=== PATIENT | male | born 1940 | race Two or more races ===

== ENCOUNTER 2019-10-12 14:06 | Inpatient (IN) | payer MEDICARE, MEDICAID ==
[~2019-10-12] VITALS: Ht 175.3 cm; Wt 86.2 kg
--- NOTE | 2019-10-12 14:20 | NUR ---
BIB [facility] C/O LETHARG[facility] THIS MORNING. PATIENT A/OX3, BREATHING EVEN AND UNLABORED, NO SOB NOTED, VERBALLY RESPONSIVE. NO DISTRESS NOTED.
[2019-10-12 14:37] LABS: BASOPHILS # (AUTO) 0.1 /CMM (0.0-0.2); BASOPHILS % (AUTO) 0.7 % (0.0-2.0); EOSINOPHILS % (AUTO) 1.3 % (0.0-6.0); HEMATOCRIT 40 % (39-51); HEMOGLOBIN 13.7 g/dL (13.5-17.5); LYMPHOCYTES % (AUTO) 34.6 % (20.0-44.0); MEAN CORPUSCULAR HGB CONC 34 g/dl (31.0-36.0); MEAN CORPUSCULAR VOLUME 82 fL (80-96); MONOCYTES # (AUTO) 1.4 /CMM (0.1-1.30); MONOCYTES % (AUTO) 16.2 % (2.0-12.0); NEUTROPHILS # (AUTO) 4.1 /CMM (1.8-8.9); NEUTROPHILS % (AUTO) 47.2 % (43.0-81.0); PLATELET COUNT (AUTO) 110 /CMM (150-450); RED BLOOD CELL COUNT(AUTO) 4.94 MIL/uL (4.5-6.0); WHITE BLOOD COUNT (AUTO) 8.6 K/uL (4.3-11.0)
[2019-10-12 14:49] LABS: CALCIUM, SERUM 8.8 mg/dL (8.5-10.1); CARBON DIOXIDE 31 mmol/L (21-32); CHLORIDE 104 mmol/L (98-107); GLUCOSE 137 mg/dL (74-106); SODIUM SERUM 140 mmol/L (136-145); UREA NITROGEN, BLOOD 17 mg/dL (7-18)
[2019-10-12 14:55] LABS: ALANINE AMINOTRANSFERASE 8 U/L (12-78); ALBUMIN 2.8 g/dL (3.4-5.0); ALKALINE PHOSPHATASE 75 U/L (46-116); ASPARTATE AMINOTRANSFERASE 12 U/L (15-37); BILIRUBIN,DIRECT 0.2 mg/dL (0.0-0.2); BILIRUBIN,TOTAL 0.6 mg/dL (0.2-1.0); LIPASE 378 U/L (73-393); TOTAL PROTEIN, SERUM 6.9 g/dL (6.4-8.2)
--- NOTE | 2019-10-12 15:26 | NUR ---
CALLED [facility]. HANDWRITING EXPERT WAS PAGED
[2019-10-12 15:46] LABS: APPEARANCE,URINE Clear (CLEAR); BILIRUBIN,URINE Negative (NEGATIVE); BLOOD, URINE Negative Ery/uL (NEGATIVE); KETONES,URINE Trace (NEGATIVE); LEUKOCYTE ESTERASE ,URINE Negative (NEGATIVE); NITRITE, URINE Negative (NEGATIVE); PROTEIN,URINE Negative (NEGATIVE); UGLUCOSE Negative (NEGATIVE)
[2019-10-12] MEDS ORDERED: FURO20TA4 PO (15:50)
[2019-10-12] MEDS ORDERED: IPRA12.9 INH (15:50)
[2019-10-12] MEDS ORDERED: ALBU8.5H8 IH (15:50)
[2019-10-12] MEDS ORDERED: DIVA-78 PO (15:50)
[2019-10-12] MEDS ORDERED: BUSP5TAB3 PO (15:50)
[2019-10-12] MEDS ORDERED: METF-440 PO (15:50)
[2019-10-12] MEDS ORDERED: RISP0.2515 PO (15:50)
[2019-10-12] MEDS ORDERED: ATOR40TA PO (15:50)
[2019-10-12] MEDS ORDERED: ASPI-1152 PO (15:50)
--- NOTE | 2019-10-12 15:52 | NUR ---
CALLED [facility] FOR [facility] BED
[2019-10-12 15:54] LABS: BAND % (MANUAL) 4 % (0.0-5.0); LYMPHOCYTES % (MANUAL) 33 % (16-48); MONOCYTES % (MANUAL) 15 % (0-11.0); NEUTROPHILS % (MANUAL) 48 (42-76)
[2019-10-12 16:04] LABS: BACTERIA,URINE None seen /HPF (None Seen); COLOR,URINE Light yellow (YELLOW); RBC,URINE 0-2 /HPF (0-2); SQUAMOUS EPITHELIAL CELL,UR None Seen /HPF (None Seen); WBC,URINE 0-2 /HPF (0-3)
--- NOTE | 2019-10-12 16:27 | NUR ---
308-1 [facility] BED
--- NOTE | 2019-10-12 16:37 | NUR ---
REPORT GIVEN TO NHUNG ALEGRIA FOR [facility].
--- NOTE | 2019-10-12 17:27 | NUR ---
PATIENT TRANSFERRED TO ROOM 308 IN STABLE CONDITION. NO DISTRESS NOTED. NEEDS ATTENDED.
--- NOTE | 2019-10-12 17:45 | NUR ---
M/S RN NOTES PATIENT RECEIVED ALERT AND ORIENTED X3, NO RESPIRATORY DISTRESS, NO C/O PAIN AT THIS TIME. PATIENT'S SKIN WARM TO TOUCH. IV ACCESS SITE INTACT AND PATENT ON THE RT HAND #22G. PATIENT'S BELONGINGS ACCOUNTED FOR AND BELONGINGS LIST SIGNED. PATIENT'S NEEDS ATTENDED. NOTIFIED MD FOR ADMISSION ORDERS. BED ON LOWEST LOCKED POSITION, CALL LIGHT WITHIN REACH. WILL CONTINUE TO MONITOR.
[2019-10-12] MEDS ORDERED: ACETAMINOPHEN 325 MG TABLET PO PRN (18:30)
[2019-10-12] MEDS ORDERED: ALBUTEROL SULFATE INH 18 GM HFA.AER.AD IH PRN (18:30)
[2019-10-12] MEDS ORDERED: MAGNESIUM HYDROXIDE 30 ML UDC PO PRN (18:30)
[2019-10-12] MEDS ORDERED: Z GUARD REMEDY 2 OZ OINT TP PRN (18:30)
[2019-10-12] MEDS ORDERED: MAG HYDROX/AL HYDROX/SIMETH 30 ML UDC PO PRN (18:30)
[2019-10-12] MEDS ORDERED: ONDANSETRON HCL/PF 4 MG/2 ML VIAL IVP PRN (18:30)
[2019-10-12] MEDS ORDERED: ZOLPIDEM TARTRATE 5 MG TABLET PO PRN (18:30)
[2019-10-12] MEDS ORDERED: IPRATROPIUM NEB FS 0.5 MG/2.5 ML AMPUL.NEB NEB PRN (18:30)
[2019-10-12] MEDS: METFORMIN 500 MG TABLET PO SCH (18:55)
[2019-10-12] MEDS: DIVALPROEX SODIUM 500 MG TABLET.DR PO SCH (19:30)
[2019-10-12] MEDS ORDERED: ALBUTEROL FS 2.5 MG/3 ML VIAL.NEB NEB PRN (19:30)
--- NOTE | 2019-10-12 19:30 | NUR ---
MS/RN OPENING NOTES: RECEIVED PATIENT ALERT AND ORIENTED X3, WITH EPISODES OF CONFUSION. VERBALLY RESPONSIVE AND ABLE TO MAKE NEEDS KNOWN. NO RESPIRATORY DISTRESS, NO C/O PAIN AT THIS TIME. PATIENT'S SKIN WARM TO TOUCH. NO OPEN WOUNDS. IV ACCESS SITE INTACT AND PATENT ON THE RT HAND #22G SL. SAFETY MEASURES IN PLACE. BED ON LOWEST LOCKED POSITION, CALL LIGHT WITHIN REACH. WILL CONTINUE TO MONITOR PT ACCORDINGLY.
[2019-10-12 20:00] VITALS: BP 134/76
[2019-10-12] MEDS: ATORVASTATIN 40 MG TABLET PO SCH (21:14)
[2019-10-12] MEDS: busPIRone 5 MG TABLET PO SCH (21:14)
--- NOTE | 2019-10-13 06:28 | NUR ---
MS/RN CLOSING NOTES: PATIENT REMAINED ALERT AND ORIENTED X3, WITH EPISODES OF CONFUSION. VERBALLY RESPONSIVE AND ABLE TO MAKE NEEDS KNOWN. NO RESPIRATORY DISTRESS, NO C/O PAIN AT THIS TIME. PATIENT'S SKIN WARM TO TOUCH. NO OPEN WOUNDS. IV ACCESS SITE INTACT AND PATENT ON THE RT HAND #22G SL. ALL MEDS GIVEN ORDERED. ALL NEEDS MET AND RENDERED AT THIS TIME. SAFETY MEASURES IN PLACE. BED ON LOWEST LOCKED POSITION, CALL LIGHT WITHIN REACH. WILL ENDORSE TO DAY SHIFT NURSE FOR ENMAN[facility]EL.
[2019-10-13 06:53] LABS: BASOPHILS % (AUTO) 0.1 % (0.0-2.0); EOSINOPHILS % (AUTO) 1.6 % (0.0-6.0); HEMATOCRIT 39 % (39-51); LYMPHOCYTES # (AUTO) 2.9 /CMM (0.8-4.8); LYMPHOCYTES % (AUTO) 38.4 % (20.0-44.0); MEAN CORPUSCULAR HGB CONC 34 g/dl (31.0-36.0); MEAN CORPUSCULAR VOLUME 81 fL (80-96); MONOCYTES # (AUTO) 1.2 /CMM (0.1-1.30); MONOCYTES % (AUTO) 15.1 % (2.0-12.0); NEUTROPHILS # (AUTO) 3.4 /CMM (1.8-8.9); NEUTROPHILS % (AUTO) 44.8 % (43.0-81.0); PLATELET COUNT (AUTO) 104 /CMM (150-450); RED BLOOD CELL COUNT(AUTO) 4.82 MIL/uL (4.5-6.0); WHITE BLOOD COUNT (AUTO) 7.7 K/uL (4.3-11.0)
[2019-10-13 07:18] LABS: CALCIUM, SERUM 8.5 mg/dL (8.5-10.1); CREATININE 0.8 mg/dL (0.6-1.3); MAGNESIUM 1.7 mg/dL (1.8-2.4); PHOSPHORUS 3.3 mg/dL (2.5-4.9); POTASSIUM 3.9 mmol/L (3.5-5.1)
--- NOTE | 2019-10-13 07:51 | NUR ---
MS RN OPENING NOTES RECEIVED PATIENT ALERT AND ORIENTED 2-3, WITH EPISODES OF CONFUSION. VERBALLY RESPONSIVE AND ABLE TO MAKE NEEDS KNOWN. NO CARDIAC OR RESPIRATORY DISTRESS, NO C/O PAIN OR DISCOMFORT AT THIS TIME. PATIENT'S SKIN WARM TO TOUCH. SKIN INTACT. IV ACCESS SITE NOTED ON R HAND G22. IV SITE INTACT AND PATENT. SAFETY MEASURES IN PLACE. BED LOCKED AND IN LOWEST POSITION, CALL LIGHT WITHIN REACH. WILL CONTINUE TO MONITOR PT ACCORDINGLY.
[2019-10-13 08:00] VITALS: BP 118/64
[2019-10-13] MEDS: FUROSEMIDE 20 MG TABLET PO SCH (08:22)
[2019-10-13] MEDS: DIVALPROEX SODIUM 500 MG TABLET.DR PO SCH ×2 (08:22→16:28)
[2019-10-13] MEDS: ASPIRIN EC 81 MG TABLET.DR PO SCH (08:22)
[2019-10-13] MEDS: busPIRone 5 MG TABLET PO SCH ×2 (08:22→16:28)
[2019-10-13] MEDS: METFORMIN 500 MG TABLET PO SCH ×2 (08:22→16:29)
[2019-10-13] MEDS: Magnesium 1GM/D5W 100ML PREMIX 100 ML IV SCH ×2 (11:28→12:08)
[2019-10-13 12:32] LABS: THYROID STIMULATING HORMONE 0.846 uIU/mL (0.358-3.74)
--- NOTE | 2019-10-13 15:00 | NUR ---
CT OF HEAD W/O CONTRAST PT CAME BACK TO UNIT S/P CT OF HEAD WITHOUT CONTRAST
[2019-10-13 15:59] VITALS: BP 119/65
[2019-10-13] MEDS: risperiDONE 0.25 MG TABLET PO SCH (16:27)
--- NOTE | 2019-10-13 17:40 | NUR ---
MS RN CLOSING NOTES PATIENT AWAKE ALERT AND ORIENTED 2-3, WITH EPISODES OF CONFUSION. VERBALLY RESPONSIVE AND ABLE TO MAKE NEEDS KNOWN. NO CARDIAC OR RESPIRATORY DISTRESS, NO C/O PAIN OR DISCOMFORT AT THIS TIME. PATIENT'S SKIN WARM TO TOUCH. SKIN INTACT. IV ACCESS SITE NOTED ON R HAND G22. IV SITE INTACT AND PATENT. MAGNESIUM REPLACED TODAY, 2G GIVEN. TOLERATED WELL. PT ALSO WENT FOR CT OF HEAD WITHOUT CONTRAST. AWAITING FOR RESULTS. SAFETY MEASURES IN PLACE. BED LOCKED AND IN LOWEST POSITION, CALL LIGHT WITHIN REACH. WILL
--- NOTE | 2019-10-13 19:21 | NUR ---
MS RN OPENING NOTES PATIENT RECEIVED RESTING IN BED, A/O X3 ABLE TO FOLLOW COMMANDS. ON 2L OF O2 VIA NC WITH BREATHING EVEN AND UNLABORED, NO SOB NOTED. NO SIGNS OF ACUTE DISTRESS. NO COMPLAINTS OF PAIN OR DISCOMFORT. IV LOCATED ON R HAND #22. SAFETY PRECAUTIONS IN PLACE WITH BED IN LOWEST POSITION, CALL LIGHT WITHIN REACH, BREAKS ON, AND SIDE RAILS UP. WILL CONTINUE TO MONITOR THROUGHOUT THE NIGHT.
[2019-10-13 20:00] VITALS: BP 121/62
[2019-10-13] MEDS: ATORVASTATIN 40 MG TABLET PO SCH (21:01)
--- NOTE | 2019-10-14 06:37 | NUR ---
MS RN CLOSING NOTES PATIENT CURRENTLY RESTING IN BED A/O X 3, ABLE TO FOLLOW COMMANDS, SLIGHTLY CONFUSED AT TIMES. ON 2L OF O2 VIA NC WITH BREATHING EVEN AND UNLABORED, NO SOB NOTED. IV LOCATED ON R HAND #22 SL. NO SIGNS OF ACUTE DISTRESS. NO COMPLAINTS OF PAIN OR DISCOMFORT. PATIENT WAS KEPT CLEAN AND DRY THROUGHOUT THE NIGHT. ALL NEEDS ATTENDED TO. SAFETY PRECAUTIONS IN PLACE WITH BED IN LOWEST POSITION, CALL LIGHT WITHIN REACH, BREAKS ON, SIDE RAILS UP. WILL ENDORSE TO DAY SHIFT NURSE ABOUT ENMANUEL.
[2019-10-14 07:00] LABS: CALCIUM, SERUM 8.5 mg/dL (8.5-10.1); CREATININE 0.9 mg/dL (0.6-1.3); MAGNESIUM 1.8 mg/dL (1.8-2.4)
--- NOTE | 2019-10-14 07:58 | NUR ---
MS RN OPENING NOTES RECEIVED PATIENT RESTING IN BED, A/O X3 ABLE TO FOLLOW COMMANDS. ON 2L OF O2 VIA NC WITH BREATHING EVEN AND UNLABORED, NO SOB NOTED. NO SIGNS OF CARDIAC OR RESPIRATORY DISTRESS NOTED. NO COMPLAINTS OF PAIN OR DISCOMFORT. IV SITE NOTED ON R HAND #22. SAFETY PRECAUTIONS IN PLACE WITH BED LOCKED AND IN LOWEST POSITION, CALL LIGHT WITHIN REACH, AND SIDE RAILS UP.
[2019-10-14 08:00] VITALS: BP 113/70
[2019-10-14] MEDS: DIVALPROEX SODIUM 500 MG TABLET.DR PO SCH ×2 (08:13→16:50)
[2019-10-14] MEDS: busPIRone 5 MG TABLET PO SCH ×2 (08:14→16:50)
[2019-10-14] MEDS: FUROSEMIDE 20 MG TABLET PO SCH (08:14)
[2019-10-14] MEDS: METFORMIN 500 MG TABLET PO SCH ×2 (08:14→16:50)
[2019-10-14] MEDS: ASPIRIN EC 81 MG TABLET.DR PO SCH (08:14)
[2019-10-14] MEDS: HYDROCODONE/APAP 5/325MG 1 EACH TABLET PO PRN ×2 (11:15→16:51)
[2019-10-14] MEDS: risperiDONE 0.25 MG TABLET PO SCH (16:50)
--- NOTE | 2019-10-14 18:18 | NUR ---
MS RN CLOSING NOTE PATIENT AWAKE ALERT AND ORIENTED 2-3, PLEASANT AND VERBALLY RESPONSIVE AND ABLE TO MAKE NEEDS KNOWN. NO CARDIAC OR RESPIRATORY DISTRESS, NO C/O PAIN OR DISCOMFORT AT THIS TIME. IV ACCESS SITE NOTED ON R HAND G22. IV SITE INTACT AND PATENT. ALL DUE MEDS ADMINISTERED. SAFETY MEASURES IN PLACE. BED LOCKED AND IN LOWEST POSITION, CALL LIGHT WITHIN REACH. WILL
--- NOTE | 2019-10-14 19:24 | NUR ---
MS RN OPENING NOTES PATIENT RECEIVED RESTING IN BED, A/O X3 ABLE TO FOLLOW COMMANDS. ON 2L OF O2 VIA NC WITH BREATHING EVEN AND UNLABORED, NO SOB NOTED. NO SIGNS OF ACUTE DISTRESS. NO COMPLAINTS OF PAIN OR DISCOMFORT. IV LOCATED ON R HAND #22 TKO . SAFETY PRECAUTIONS IN PLACE WITH BED IN LOWEST POSITION, CALL LIGHT WITHIN REACH, BREAKS ON, AND SIDE RAILS UP. WILL CONTINUE TO MONITOR THROUGHOUT THE NIGHT.
[2019-10-14 20:00] VITALS: BP 125/63
[2019-10-14] MEDS: ATORVASTATIN 40 MG TABLET PO SCH (21:31)
--- NOTE | 2019-10-15 06:30 | NUR ---
MS RN CLOSING NOTES PATIENT CURRENTLY RESTING IN BED, A/O X3 ABLE TO FOLLOW COMMANDS. ON 2L OF O2 VIA NC WITH BREATHING EVEN AND UNLABORED, NO SOB NOTED. NO SIGNS OF ACUTE DISTRESS. NO COMPLAINTS OF PAIN OR DISCOMFORT. IV LOCATED ON R HAND #22 TKO . SAFETY PRECAUTIONS IN PLACE WITH BED IN LOWEST POSITION, CALL LIGHT WITHIN REACH, BREAKS ON, AND SIDE RAILS UP. PATIENT WAS KEPT CLEAN AND DRY THROUGHOUT THE NIGHT. ALL NEEDS ATTENDED TO. WILL ENDORSE TO ONCOMING SHIFT ABOUT ENMANUEL.
[2019-10-15 08:00] VITALS: BP 122/59
--- NOTE | 2019-10-15 08:00 | NUR ---
RN NOTES RECEIVED PATIENT IN THE BED A/O X3, NO ACUTE RESPIRATORY DISTRESS, PATIENT REFUSED PAIN, ADMINISTERED SCHEDULED MEDICATION, V/S STABLE. PATIENT INCONTINENT, USING DIAPER, ASSIST TURN AND REPOSTION Q 2 HR. CALL LIGHT WITHIN TO REACH.
[2019-10-15] MEDS: FUROSEMIDE 20 MG TABLET PO SCH (09:35)
[2019-10-15] MEDS: ASPIRIN EC 81 MG TABLET.DR PO SCH (09:35)
[2019-10-15] MEDS: DIVALPROEX SODIUM 500 MG TABLET.DR PO SCH (09:36)
[2019-10-15] MEDS: busPIRone 5 MG TABLET PO SCH (09:36)
[2019-10-15] MEDS: METFORMIN 500 MG TABLET PO SCH (09:36)
--- NOTE | 2019-10-15 10:00 | NUR ---
rn notes patient will discharge to the snf via hospitalist orders.
--- NOTE | 2019-10-15 15:20 | NUR ---
CANE BURNER NOTES PATIENT DISCHARGE AT THIS TIME GOING SNF. PATIENT A/O X3, STABLE ,V/S WNL, REFUSED PAIN. MED RECONCILIATION AND DISCHARGE ORDER REVIEWED AND EXPLAINED TO THE PATIENT. REPORT GIVEN SNF MANAGER GREEN CHARGE NURSE. MANAGER GREEN CHARGE NURSE VERBALIZED UNDERSTANDING. PATIENT HAS NO BELONGING. PATIENT WILL FOLLOW SNF REVENUE TAX SPECIALIST. PATIENT AUTOMOBILE REPAIR SERVICE ESTIMATOR BY AMBULANCE. FAMILY AWARE OF DISCHARGE PLANING.
== END 2019-10-15 15:30 | DRG 640 ==
LOC: ER 14:10 → MED 16:54
PROVIDERS: ADMIT Internal Medicine; ATTEND Internal Medicine
DX: E86.0 Dehydration (principal); G93.41 Metabolic encephalopathy; I50.32 Chronic diastolic (congestive) heart failure; R62.7 Adult failure to thrive; I11.0 Hypertensive heart disease with heart failure; E11.42 Type 2 diabetes mellitus with diabetic polyneuropathy; J44.9 Chronic obstructive pulmonary disease, unspecified; E78.5 Hyperlipidemia, unspecified; F03.90 Unspecified dementia, unspecified severity, without behavioral disturbance, psychotic disturbance, mood disturbance, and anxiety; Z79.84 Long term (current) use of oral hypoglycemic drugs; F32.9 Major depressive disorder, single episode, unspecified; R53.1 Weakness; R40.2413 Glasgow coma scale score 13-15, at hospital admission; G93.89 Other specified disorders of brain
CPT/HCPCS: 36415; 70450-TC; 71045-TC; 80048-TC; 80076-TC; 80164-TC; 81000-TC; 83690-TC; 83735-TC; 84100-TC; 84443-TC; 84484-TC; 85025-TC; 87081-TC; 97116-TC; 97530-TC; G0378; J3475; J7040

== ENCOUNTER 2020-05-23 17:50 | Emergency (ER) | payer MEDICAID, MEDICARE, OTHER ==
[~2020-05-23] VITALS: Ht 172.7 cm; Wt 104.3 kg
[~2020-05-23 17:50] MED LIST: ALBU8.5H8 IH; ASPI-1420 PO; ATOR40TA PO; BUSP5TAB3 PO; DIVA-78 PO; FURO20TA4 PO; IPRA12.9 INH; METF-440 PO; RISP0.2515 PO
[2020-05-23 18:26] VITALS: BP 115/71
--- NOTE | 2020-05-23 22:56 | NUR ---
CALLED [facility] FOR DISCHARGE TO SNF. NO ETA PROVIDED. RESERVATION NUMBER [id number].
--- NOTE | 2020-05-24 00:42 | NUR ---
[facility] ETA 1 HR
--- NOTE | 2020-05-24 01:40 | NUR ---
REPOT GIVEN TO RENNY ALEGRIA AT [facility] FOR [facility].
== END 2020-05-24 01:46 | disposition home or self-care (01) ==
LOC: ER 17:52
DX: S09.8XXA Other specified injuries of head, initial encounter (principal); R51.9 Headache, unspecified; J44.9 Chronic obstructive pulmonary disease, unspecified; I11.0 Hypertensive heart disease with heart failure; I50.9 Heart failure, unspecified; E11.9 Type 2 diabetes mellitus without complications; Z79.84 Long term (current) use of oral hypoglycemic drugs; Z79.82 Long term (current) use of aspirin; Z79.899 Other long term (current) drug therapy; W18.09XA Striking against other object with subsequent fall, initial encounter; Y93.89 Activity, other specified; Y92.89 Other specified places as the place of occurrence of the external cause; Y99.8 Other external cause status
CPT/HCPCS: 70450; 99284; A6403

== ENCOUNTER 2025-02-08 13:52 | Inpatient (IN) | payer MEDICARE, OTHER ==
[~2025-02-08] VITALS: Ht 172.7 cm; Wt 74.8 kg
[2025-02-08 15:34] LABS: APPEARANCE,URINE CLEAR (CLEAR); BLOOD, URINE Negative Ery/uL (NEGATIVE); LEUKOCYTE ESTERASE ,URINE Negative (NEGATIVE); UGLUCOSE Negative (NEGATIVE)
[2025-02-08 15:40] LABS: AMPHETAMINE, URINE NEGATIVE (NEGATIVE); BARBITURATE, URINE NEGATIVE (NEGATIVE); BENZODIAZEPINE, URINE NEGATIVE (NEGATIVE); CANNABINOID, URINE NEGATIVE (NEGATIVE); COCCAINE, URINE NEGATIVE (NEGATIVE); OPIATE, URINE NEGATIVE (NEGATIVE)
[2025-02-08 15:41] LABS: NITRITE, URINE NEGATIVE (NEGATIVE)
[2025-02-08 15:56] LABS: ADD URINE CULTURE NO; SQUAMOUS EPITHELIAL CELL,UR None Seen /HPF (None Seen)
[2025-02-08] MEDS ORDERED: OLANZAPINE 10 MG VIAL IM ONE (17:09)
[2025-02-08] MEDS: OLANZAPINE 10 MG VIAL IM ONE (17:19)
[2025-02-08] MEDS ORDERED: MELA5TAB PO (17:20)
[2025-02-08] MEDS ORDERED: DOCU-141 PO (17:20)
[2025-02-08] MEDS ORDERED: LORA-258 PO (17:20)
[2025-02-08] MEDS ORDERED: INSU100V39 SQ (17:20)
[2025-02-08] MEDS ORDERED: SENN8.6T19 PO (17:20)
[2025-02-08] MEDS ORDERED: METF-442 PO (17:20)
[2025-02-08] MEDS ORDERED: INSU100V7 SQ (17:20)
[2025-02-08] MEDS ORDERED: MIDO5TAB4 PO (17:20)
[2025-02-08] MEDS ORDERED: BISA10SU11 RC (17:20)
[2025-02-08 18:06] LABS: PLATELET COUNT (AUTO) 182 K/uL (150-450); RED BLOOD CELL COUNT(AUTO) 4.39 MIL/uL (4.5-6.0); RED CELL DISTRIBUTION WIDTH 17.5 % (11.5-15.0); WHITE BLOOD COUNT (AUTO) 8.3 K/uL (4.3-11.0)
[2025-02-08 18:21] LABS: CALCIUM, SERUM 8.7 mg/dL (8.5-10.1); CREATININE 1.0 mg/dL (0.6-1.3); SODIUM SERUM 138 mmol/L (136-145); UREA NITROGEN, BLOOD 16 mg/dL (7-18)
[2025-02-08 18:25] LABS: ALCOHOL, BLOOD < 3 mg/dL (0-10); ASPARTATE AMINOTRANSFERASE 14 U/L (15-37); TOTAL PROTEIN, SERUM 7.1 g/dL (6.4-8.2)
[2025-02-08 20:00] VITALS: BP 157/89; TEMP 98.2; O2SAT 97
[2025-02-08] MEDS ORDERED: SENNOSIDES 8.6 MG TABLET PO PRN (20:00)
[2025-02-08] MEDS ORDERED: DEXTROSE 50%-WATER 50 ML DISP.SYRIN IV PRN (20:00)
[2025-02-08] MEDS ORDERED: MIDODRINE HCL (5MG) 5 MG TABLET PO PRN (20:00)
[2025-02-08] MEDS ORDERED: BISACODYL SUPP (10 MG) 10 MG/SUPP.RECT SUPP.RECT RC PRN (20:00)
[2025-02-08] MEDS ORDERED: MAGNESIUM HYDROXIDE 30 ML UDC PO PRN (20:30)
[2025-02-08] MEDS ORDERED: MAG HYDROX/AL HYDROX/SIMETH 30 ML UDC PO PRN (20:30)
[2025-02-08] MEDS ORDERED: ZOLPIDEM TARTRATE 5 MG TABLET PO PRN (20:30)
[2025-02-08] MEDS: ATORVASTATIN 40 MG TABLET PO SCH (21:19)
[2025-02-08] MEDS ORDERED: Z GUARD REMEDY 4 OZ OINT TP PRN (21:30)
[2025-02-08] MEDS ORDERED: BLOOD SUGAR DIAGNOSTIC 1 EACH STRIP IN ONE (22:00)
[2025-02-08] MEDS: BLOOD SUGAR DIAGNOSTIC 1 EACH STRIP IN SCH (22:45)
[2025-02-08 23:05] VITALS: BP 132/76; TEMP 98; O2SAT 98
[2025-02-08 23:06] VITALS: BP 132/76; TEMP 98; O2SAT 98
[2025-02-08 23:07] VITALS: BP 132/76; TEMP 98; O2SAT 98
[2025-02-09 08:00] VITALS: BP 124/76; TEMP 97.7; O2SAT 97
[2025-02-09 16:00] VITALS: BP 129/73; TEMP 97.8; O2SAT 97
[2025-02-09] MEDS: METFORMIN 500 MG TABLET PO SCH (17:00)
[2025-02-09] MEDS: OXCARBAZEPINE 150 MG TABLET PO SCH (17:20)
[2025-02-09 20:54] VITALS: BP 138/84; TEMP 97.8; O2SAT 98
[2025-02-09] MEDS: QUETIAPINE FUMARATE 25 MG TABLET PO SCH (21:07)
[2025-02-09] MEDS: INSULIN GLARGINE, 100 UNIT/ML CARTRIDGE SQ SCH (21:42)
[2025-02-09] MEDS: INSULIN REGULAR, HUMAN 100 UNIT/ML 3 ML VIAL SQ PRN (21:43)
[2025-02-10 08:00] VITALS: BP 143/93; TEMP 97.8; O2SAT 98
[2025-02-10] MEDS: ASPIRIN EC 81 MG TABLET.DR PO SCH (09:45)
[2025-02-10] MEDS: IPRATROPIUM NEB FS 0.5 MG/2.5 ML AMPUL.NEB NEB PRN (11:24)
[2025-02-10 11:25] VITALS: O2SAT 94
[2025-02-10] MEDS: ALBUTEROL FS 2.5 MG/3 ML VIAL.NEB NEB PRN (11:25)
[2025-02-10 11:40] VITALS: O2SAT 95
[2025-02-10 15:59] VITALS: BP 140/74; TEMP 97.9; O2SAT 98
[2025-02-10 20:12] VITALS: BP 128/74; TEMP 98.2; O2SAT 98
[2025-02-11] MEDS: ZOLPIDEM TARTRATE 5 MG TABLET PO PRN (01:45)
[2025-02-11 08:00] VITALS: BP 124/74; TEMP 98.7; O2SAT 98
[2025-02-11 16:00] VITALS: BP 120/73; TEMP 98.1; O2SAT 97
[2025-02-11] MEDS: OXCARBAZEPINE 150 MG TABLET PO SCH (16:59)
[2025-02-11 20:09] VITALS: BP 120/70; TEMP 98.2; O2SAT 97
[2025-02-12 08:03] VITALS: BP 133/83; TEMP 97.8; O2SAT 98
[2025-02-12] MEDS: QUETIAPINE FUMARATE 25 MG TABLET PO SCH (08:12)
[2025-02-12] MEDS: LOPERAMIDE HCL (2 MG CAP) 2 MG CAPSULE PO PRN (09:09)
[2025-02-12 15:58] VITALS: BP 149/98; TEMP 98.6; O2SAT 98
[2025-02-12 20:11] VITALS: BP 126/79; TEMP 98.5; O2SAT 97
[2025-02-13] MEDS: QUETIAPINE FUMARATE 25 MG TABLET PO PRN (05:25)
[2025-02-13 08:00] VITALS: BP 141/61; TEMP 98.7; O2SAT 97
[2025-02-13 16:00] VITALS: BP 125/59; TEMP 98.6; O2SAT 97
[2025-02-13 20:14] VITALS: BP 112/59; TEMP 98.1; O2SAT 98
[2025-02-14] MEDS: ACETAMINOPHEN 325 MG TABLET PO PRN (03:42)
[2025-02-14 08:00] VITALS: BP 125/98; TEMP 98.1; O2SAT 97
[2025-02-14] MEDS: OXCARBAZEPINE 150 MG TABLET PO SCH (08:55)
[2025-02-14] MEDS: QUETIAPINE FUMARATE 25 MG TABLET PO SCH ×2 (13:58→21:32)
[2025-02-14 16:00] VITALS: BP 127/76; TEMP 97.7; O2SAT 97
[2025-02-14 20:00] VITALS: BP 118/61; TEMP 97.8; O2SAT 99
[2025-02-15 08:00] VITALS: BP 145/75; TEMP 97.7; O2SAT 100
[2025-02-15 15:59] VITALS: BP 126/68; TEMP 97.7; O2SAT 99
[2025-02-15 22:33] VITALS: BP 125/70; TEMP 98.3; O2SAT 98
[2025-02-16 08:00] VITALS: BP 132/73; TEMP 98.6; O2SAT 98
[2025-02-16] MEDS: QUETIAPINE FUMARATE 25 MG TABLET PO SCH (09:27)
[2025-02-16 16:00] VITALS: BP 130/75; TEMP 98; O2SAT 98
[2025-02-17 08:00] VITALS: BP 122/66; TEMP 97.7; O2SAT 95
[2025-02-17] MEDS: DOCUSATE SODIUM 100 MG CAPSULE PO PRN (08:17)
[2025-02-17 16:00] VITALS: BP 113/72; TEMP 98; O2SAT 98
[2025-02-17 20:08] VITALS: BP 150/69; TEMP 98; O2SAT 97
[2025-02-18 08:00] VITALS: BP 117/60; TEMP 98.7; O2SAT 98
[2025-02-18 16:00] VITALS: BP 115/68; TEMP 98.1; O2SAT 99
[2025-02-18 20:00] VITALS: BP 117/89; TEMP 98; O2SAT 96
[2025-02-18 20:10] VITALS: BP 117/89; TEMP 98; O2SAT 96
[2025-02-19 08:00] VITALS: BP 139/68; TEMP 97.8; O2SAT 97
[2025-02-19 16:02] VITALS: BP 123/75; TEMP 97.7; O2SAT 98
[2025-02-19 19:54] VITALS: BP 126/96; TEMP 97.9; O2SAT 97
[2025-02-20 08:00] VITALS: BP 122/70; TEMP 98.1; O2SAT 97
[2025-02-20 16:00] VITALS: BP 124/74; TEMP 97.7; O2SAT 99
[2025-02-20] MEDS: GABAPENTIN 100 MG CAPSULE PO SCH (16:40)
[2025-02-20 20:10] VITALS: BP 140/72; TEMP 97.7; O2SAT 99
[2025-02-21 08:04] VITALS: BP 125/72; TEMP 97.8; O2SAT 95
[2025-02-21 16:00] VITALS: BP 108/67; TEMP 98; O2SAT 99
[2025-02-21 20:00] VITALS: BP 140/80; TEMP 97.7; O2SAT 97
[2025-02-22 08:00] VITALS: BP 130/61; TEMP 98.1; O2SAT 97
== END 2025-02-22 18:29 | DRG 885 ==
LOC: ER 14:09 → GPS 17:45
PROVIDERS: ADMIT Psychiatry & Neurology Psychiatry
DX: F39 Unspecified mood [affective] disorder (principal); I11.0 Hypertensive heart disease with heart failure; I50.32 Chronic diastolic (congestive) heart failure; F03.92 Unspecified dementia, unspecified severity, with psychotic disturbance; F03.93 Unspecified dementia, unspecified severity, with mood disturbance; F29 Unspecified psychosis not due to a substance or known physiological condition; E11.9 Type 2 diabetes mellitus without complications; J44.9 Chronic obstructive pulmonary disease, unspecified; E78.5 Hyperlipidemia, unspecified; Z79.4 Long term (current) use of insulin; Z73.6 Limitation of activities due to disability; Z20.822 Contact with and (suspected) exposure to COVID-19; Z79.84 Long term (current) use of oral hypoglycemic drugs; Z79.899 Other long term (current) drug therapy
CPT/HCPCS: 36415; 80048-TC; 80076-TC; 81001; 82962-TC; 85025-TC; 87081-TC; 97110-TC; 97116-TC; 97530-TC; G0480; J1200; J1815; J3490

== ENCOUNTER 2025-07-26 14:59 | Inpatient (IN) | payer MEDICARE, OTHER ==
[~2025-07-26] VITALS: Ht 172.7 cm; Wt 78.0 kg
[~2025-07-26 14:59] MED LIST changes: -ALBU8.5H8 IH; +BISA10SU11 RC; +DOCU-141 PO; -FURO20TA4 PO; +INSU100V39 SQ; +INSU100V7 SQ; -IPRA12.9 INH; +LORA-258 PO; +MELA5TAB PO; -METF-440 PO; +METF-442 PO; +MIDO5TAB4 PO; +SENN8.6T19 PO
[2025-07-26] MEDS ORDERED: MAGN400O6 PO (16:24)
[2025-07-26] MEDS ORDERED: MAG30ORA PO (16:24)
[2025-07-26] MEDS ORDERED: OXCA300T15 PO (16:24)
[2025-07-26] MEDS ORDERED: ACET325T53 PO (16:24)
[2025-07-26] MEDS ORDERED: NA P133E RC (16:24)
[2025-07-26] MEDS ORDERED: INSU100V3 SQ (16:24)
[2025-07-26] MEDS ORDERED: QUET25TA PO ×2 (16:24)
[2025-07-26] MEDS ORDERED: GABA-532 PO (16:24)
[2025-07-26] MEDS ORDERED: GLUC1KIT IJ (16:24)
[2025-07-26] MEDS ORDERED: BUSP7.5T7 PO (16:24)
[2025-07-26] MEDS ORDERED: HALOPERIDOL LACTATE INJ 5 MG/ML VIAL ONE (17:00)
[2025-07-26] MEDS: HALOPERIDOL LACTATE INJ 5 MG/ML VIAL IM ONE (17:05)
[2025-07-26] MEDS ORDERED: MIDAZOLAM HCL 2 MG/2ML VIAL ONE (17:59)
[2025-07-26] MEDS: MIDAZOLAM HCL 2 MG/2ML VIAL IM ONE (18:20)
[2025-07-26 18:26] LABS: PLATELET COUNT (AUTO) 252 K/uL (150-450); RED BLOOD CELL COUNT(AUTO) 3.89 MIL/uL (4.5-6.0); RED CELL DISTRIBUTION WIDTH 15.5 % (11.5-15.0); WHITE BLOOD COUNT (AUTO) 7.8 K/uL (4.3-11.0)
[2025-07-26 18:38] LABS: CALCIUM, SERUM 8.1 mg/dL (8.5-10.1); CREATININE 1.2 mg/dL (0.6-1.3); SODIUM SERUM 140.0 mmol/L (136-145); UREA NITROGEN, BLOOD 19.0 mg/dL (7-18)
[2025-07-26 18:45] LABS: ASPARTATE AMINOTRANSFERASE 13.0 U/L (15-37); TOTAL PROTEIN, SERUM 7.0 g/dL (6.4-8.2)
[2025-07-26 18:48] LABS: APPEARANCE,URINE CLEAR (CLEAR); BLOOD, URINE NEGATIVE Ery/uL (NEGATIVE); LEUKOCYTE ESTERASE ,URINE NEGATIVE (NEGATIVE); NITRITE, URINE NEGATIVE (NEGATIVE); UGLUCOSE NEGATIVE (NEGATIVE)
[2025-07-26] MEDS ORDERED: POTASSIUM CL. PREMIX PERIPHER. 50 ML ONE (20:12)
[2025-07-26] MEDS: POTASSIUM CL. PREMIX PERIPHER. 50 ML IV SCH (20:14)
[2025-07-26] MEDS ORDERED: POTASSIUM CL. PREMIX PERIPHER. 100 ML ONE (20:45)
[2025-07-26 23:18] VITALS: BP 128/69; TEMP 97.9; O2SAT 98
[2025-07-26 23:30] VITALS: BP 128/69; TEMP 97.9; O2SAT 100
[2025-07-26] MEDS ORDERED: ZOLPIDEM TARTRATE 5 MG TABLET PO PRN (23:30)
[2025-07-26] MEDS: QUETIAPINE FUMARATE 25 MG TABLET PO SCH ×2 (23:30)
[2025-07-26] MEDS ORDERED: MAG HYDROX/AL HYDROX/SIMETH 30 ML UDC PO PRN ×2 (23:30)
[2025-07-26] MEDS: GABAPENTIN 100 MG CAPSULE PO SCH (23:30)
[2025-07-26] MEDS: ATORVASTATIN 40 MG TABLET PO SCH (23:30)
[2025-07-26] MEDS: OXCARBAZEPINE 150 MG TABLET PO SCH (23:30)
[2025-07-26] MEDS ORDERED: DOCUSATE SODIUM 100 MG CAPSULE PO PRN (23:30)
[2025-07-26] MEDS ORDERED: MAGNESIUM HYDROXIDE 30 ML UDC PO PRN (23:30)
[2025-07-26] MEDS ORDERED: DEXTROSE 50%-WATER 50 ML DISP.SYRIN IV PRN (23:30)
[2025-07-26] MEDS ORDERED: BISACODYL SUPP (10 MG) 10 MG/SUPP.RECT SUPP.RECT RC PRN (23:30)
[2025-07-26] MEDS ORDERED: ONDANSETRON HCL/PF 4 MG/2 ML VIAL IVP PRN (23:30)
[2025-07-26] MEDS ORDERED: ACETAMINOPHEN 325 MG TABLET PO PRN (23:30)
[2025-07-27] MEDS: IV NS 0.9% 1,000 ML IV PRN (00:37)
[2025-07-27] MEDS: BLOOD SUGAR DIAGNOSTIC 1 EACH STRIP IN SCH (00:56)
[2025-07-27 01:11] LABS: CALCIUM, SERUM 7.7 mg/dL (8.5-10.1); CREATININE 1.0 mg/dL (0.6-1.3); UREA NITROGEN, BLOOD 17.0 mg/dL (7-18)
[2025-07-27 01:18] LABS: SODIUM SERUM 140.0 mmol/L (136-145)
[2025-07-27] MEDS: POTASSIUM CL. PREMIX PERIPHER. 50 ML IV SCH ×2 (02:23→10:02)
[2025-07-27] MEDS: INSULIN REGULAR, HUMAN 100 UNIT/ML 3 ML VIAL SQ PRN (05:55)
[2025-07-27 06:59] LABS: PLATELET COUNT (AUTO) 248 K/uL (150-450); RED BLOOD CELL COUNT(AUTO) 3.80 MIL/uL (4.5-6.0); RED CELL DISTRIBUTION WIDTH 15.7 % (11.5-15.0); WHITE BLOOD COUNT (AUTO) 7.7 K/uL (4.3-11.0)
[2025-07-27 07:11] LABS: INR 1.14 (0.91-1.10)
[2025-07-27 07:16] LABS: CALCIUM, SERUM 8.2 mg/dL (8.5-10.1); CREATININE 1.0 mg/dL (0.6-1.3); PHOSPHORUS 2.9 mg/dL (2.5-4.9); UREA NITROGEN, BLOOD 15.0 mg/dL (7-18)
[2025-07-27 07:36] LABS: SODIUM SERUM 145.0 mmol/L (136-145)
[2025-07-27 08:00] VITALS: BP 125/71; TEMP 98.9; O2SAT 97
[2025-07-27] MEDS: ASPIRIN EC 81 MG TABLET.DR PO SCH (09:00)
[2025-07-27] MEDS: Magnesium 1GM/D5W 100ML PREMIX 100 ML IV SCH (10:49)
[2025-07-27] MEDS ORDERED: Z GUARD REMEDY 4 OZ OINT TP PRN (16:00)
[2025-07-27] MEDS: OLANZAPINE 10 MG VIAL IM ONE (16:22)
[2025-07-27] MEDS: Potassium Chloride 10 MEQ in IV D5/0.45 NACL 1,000 ML IV SCH (18:05)
[2025-07-28 08:30] VITALS: BP 156/71; TEMP 97.9; O2SAT 100
[2025-07-28] MEDS: DIVALPROEX SODIUM 125 MG CAP.SPRINK PO SCH (13:00)
[2025-07-28] MEDS ORDERED: LORAZEPAM 1 MG TABLET PO PRN (13:00)
[2025-07-28] MEDS ORDERED: PIPERACILLIN /TAZOBACTAM 3.375 G in IV D5W 50 ML IV SCH (14:00)
[2025-07-28] MEDS ORDERED: LORAZEPAM INJ 2 MG/ML VIAL IV PRN (14:30)
[2025-07-28] MEDS: ZOSYN IVPB 3.375 G in IV D5W 50ml IV ONE (15:59)
[2025-07-28 16:29] VITALS: BP 157/68; TEMP 97.3; O2SAT 98
[2025-07-28] MEDS: risperiDONE-M 0.5 MG TAB.RAPDIS PO SCH (17:00)
[2025-07-28] MEDS: PIPERACILLIN /TAZOBACTAM 3.375 G in IV D5W 100 ML IV SCH (22:50)
[2025-07-29] VITALS (19 sets, daily range): BP systolic 97–158; BP diastolic 51–120; TEMP 97.3–97.8; O2SAT 99–100
[2025-07-29] MEDS ORDERED: LORAZEPAM 1 MG TABLET PO PRN (10:00)
[2025-07-29] MEDS: LORAZEPAM INJ 2 MG/ML VIAL IV PRN (14:18)
[2025-07-29] MEDS: OLANZAPINE 10 MG VIAL IM PRN (14:59)
[2025-07-29 15:50] LABS: PLATELET COUNT (AUTO) 266 K/uL (150-450); RED BLOOD CELL COUNT(AUTO) 4.52 MIL/uL (4.5-6.0); RED CELL DISTRIBUTION WIDTH 15.3 % (11.5-15.0); WHITE BLOOD COUNT (AUTO) 8.2 K/uL (4.3-11.0)
[2025-07-29 15:57] LABS: CALCIUM, SERUM 8.3 mg/dL (8.5-10.1); CREATININE 1.0 mg/dL (0.6-1.3); SODIUM SERUM 146.0 mmol/L (136-145); UREA NITROGEN, BLOOD 7.0 mg/dL (7-18)
[2025-07-29 16:15] LABS: FREE PSA 0.26 ng/mL (0.00-45); PROSTATE SPECIFIC ANTIGEN SCR 2.63 ng/mL (0.00-4.00)
[2025-07-29 16:16] LABS: IRON, SERUM 36.0 ug/dl (50-175)
[2025-07-29 16:36] LABS: FIBRINOGEN ACTIVITY 394.0 Mg/dL (213-485); INR 1.22 (0.91-1.10)
[2025-07-29] MEDS: POTASSIUM CL. PREMIX PERIPHER. 50 ML IV SCH (17:04)
[2025-07-29] MEDS ORDERED: IOHEXOL-300 100 ML VIAL IV ONE (18:07)
[2025-07-29] MEDS ORDERED: IV NS 0.9% 250 ML IV ONE (18:07)
[2025-07-29] MEDS ORDERED: DIATR MEGLU/DIATRIZOATE SODIUM 120 ML BOTTLE (GASTROGRAPHIN) ONE (18:07)
[2025-07-30] VITALS (28 sets, daily range): BP systolic 93–153; BP diastolic 33–93; TEMP 97.5–98.5; O2SAT 98–100
[2025-07-30 04:46] LABS: PLATELET COUNT (AUTO) 237 K/uL (150-450); RED BLOOD CELL COUNT(AUTO) 4.24 MIL/uL (4.5-6.0); RED CELL DISTRIBUTION WIDTH 15.6 % (11.5-15.0); WHITE BLOOD COUNT (AUTO) 10.8 K/uL (4.3-11.0)
[2025-07-30 04:54] LABS: CALCIUM, SERUM 8.0 mg/dL (8.5-10.1); CREATININE 1.0 mg/dL (0.6-1.3); SODIUM SERUM 140 mmol/L (136-145); UREA NITROGEN, BLOOD 6 mg/dL (7-18)
[2025-07-30] MEDS: POTASSIUM CL. PREMIX PERIPHER. 50 ML IV SCH ×2 (06:59→15:30)
[2025-07-30] MEDS: Magnesium 1GM/D5W 100ML PREMIX 100 ML IV SCH (08:29)
[2025-07-30 09:12] LABS: CARCINOEMBRYONIC ANTIGEN (CEA) 12.6 ng/mL (0.0-4.7)
[2025-07-30 10:08] LABS: FOLIC ACID 9.5 ng/mL (>3.0)
[2025-07-30] MEDS ORDERED: ALBUTEROL HALF STRENGTH 1.25 MG/3 ML VIAL.NEB NEB PRN (10:30)
[2025-07-30] MEDS ORDERED: IPRATROPIUM NEB FS 0.5 MG/2.5 ML AMPUL.NEB NEB PRN (10:30)
[2025-07-30 11:01] LABS: ABG BASE EXCESS -5.5 mmol/L (-2.0-3.0); ABG OXYGEN SATURATION 97.7 % (94.0-98.0); ABG PCO2 33.3 mmHg (35.0-48.0); ABG PH 7.371 (7.350-7.450); ABG PO2 109.9 mmHg (83.0-108.0); ABG TOTAL HEMOGLOBIN 13.0 G/dL (13.5-17.5); FLOW, BLOOD GAS 2.00 L/min (0.00-30.00); FRACTIONATED INSPIRED OXYGEN 28.0 %; SITE, ABG RIGHT RADIAL
[2025-07-30 12:07] LABS: IMMUNOGLOBULIN A, SERUM 208 mg/dL (61-437); IMMUNOGLOBULIN M, SERUM 48 mg/dL (15-143)
[2025-07-30 14:56] LABS: CALCIUM, SERUM 8.2 mg/dL (8.5-10.1); CREATININE 1.1 mg/dL (0.6-1.3); SODIUM SERUM 142.0 mmol/L (136-145); UREA NITROGEN, BLOOD 6.0 mg/dL (7-18)
[2025-07-30 15:07] LABS: FREE KAPPA LT CHAINS SERUM 43.6 mg/L (3.3-19.4); FREE LAMBDA LT CHAIN SERUM 38.3 mg/L (5.7-26.3); KAPPA/LAMBDA RATIO SERUM 1.14 (0.26-1.65)
[2025-07-30] MEDS: FERROUS SULFATE (325 MG) 325 MG/TAB TABLET PO SCH (17:00)
[2025-07-31] VITALS (33 sets, daily range): BP systolic 112–161; BP diastolic 54–87; TEMP 96.4–98.1; O2SAT 97–100
[2025-07-31 04:29] LABS: PLATELET COUNT (AUTO) 248 K/uL (150-450); RED BLOOD CELL COUNT(AUTO) 4.54 MIL/uL (4.5-6.0); RED CELL DISTRIBUTION WIDTH 15.7 % (11.5-15.0); WHITE BLOOD COUNT (AUTO) 9.1 K/uL (4.3-11.0)
[2025-07-31 04:38] LABS: CALCIUM, SERUM 8.4 mg/dL (8.5-10.1); CREATININE 1.0 mg/dL (0.6-1.3); SODIUM SERUM 145.0 mmol/L (136-145); UREA NITROGEN, BLOOD 5.0 mg/dL (7-18)
[2025-07-31] MEDS: POTASSIUM CL. PREMIX PERIPHER. 50 ML IV SCH (09:15)
[2025-07-31 10:10] LABS: *SPE A/G RATIO 1.1 (0.7-1.7); *SPE ALBUMIN 3.3 g/dL (2.9-4.4); *SPE ALPHA-1-GLOBULIN 0.3 g/dL (0.0-0.4); *SPE ALPHA-2-GLOBULIN 0.7 g/dL (0.4-1.0); *SPE BETA GLOBULIN 0.9 g/dL (0.7-1.3); *SPE GLOBULIN, TOTAL 3.0 g/dL (2.2-3.9); *SPE M-SPIKE Not Observed g/dL (Not Observed); *SPE PROTEIN TOTAL 6.3 g/dL (6.0-8.5); *SPEGAMMA GLOBULIN 1.1 g/dL (0.4-1.8)
[2025-07-31] MEDS ORDERED: IV NS 0.9% 250 ML IV PRN (17:30)
[2025-08-01] VITALS (32 sets, daily range): BP systolic 120–156; BP diastolic 47–102; TEMP 97.8–98.4; O2SAT 95–100
[2025-08-01] MEDS: LORAZEPAM INJ 2 MG/ML VIAL IV PRN (12:29)
[2025-08-02] VITALS (32 sets, daily range): BP systolic 128–161; BP diastolic 53–102; TEMP 97.8–98.4; O2SAT 95–100
[2025-08-02 04:45] LABS: PLATELET COUNT (AUTO) 269 K/uL (150-450); RED BLOOD CELL COUNT(AUTO) 4.40 MIL/uL (4.5-6.0); RED CELL DISTRIBUTION WIDTH 14.9 % (11.5-15.0); WHITE BLOOD COUNT (AUTO) 9.0 K/uL (4.3-11.0)
[2025-08-02 04:56] LABS: INR 1.36 (0.91-1.10)
[2025-08-02 05:06] LABS: ASPARTATE AMINOTRANSFERASE 10.0 U/L (15-37); CALCIUM, SERUM 8.4 mg/dL (8.5-10.1); CREATININE 0.8 mg/dL (0.6-1.3); PHOSPHORUS 2.6 mg/dL (2.5-4.9); SODIUM SERUM 143.0 mmol/L (136-145); TOTAL PROTEIN, SERUM 6.6 g/dL (6.4-8.2); UREA NITROGEN, BLOOD 4.0 mg/dL (7-18)
[2025-08-02] MEDS: POTASSIUM CL. PREMIX PERIPHER. 50 ML IV SCH ×3 (06:19→16:48)
[2025-08-02] MEDS: Magnesium 1GM/D5W 100ML PREMIX 100 ML IV SCH (07:32)
[2025-08-02 15:01] LABS: CALCIUM, SERUM 8.3 mg/dL (8.5-10.1); CREATININE 0.9 mg/dL (0.6-1.3); SODIUM SERUM 142.0 mmol/L (136-145); UREA NITROGEN, BLOOD 3.0 mg/dL (7-18)
[2025-08-02 15:07] LABS: PLATELET COUNT (AUTO) 243 K/uL (150-450); RED BLOOD CELL COUNT(AUTO) 4.37 MIL/uL (4.5-6.0); RED CELL DISTRIBUTION WIDTH 14.9 % (11.5-15.0); WHITE BLOOD COUNT (AUTO) 8.6 K/uL (4.3-11.0)
[2025-08-03] VITALS (17 sets, daily range): BP systolic 92–172; BP diastolic 56–100; TEMP 97.8–98.4; O2SAT 95–100
[2025-08-03 04:35] LABS: PLATELET COUNT (AUTO) 233 K/uL (150-450); RED BLOOD CELL COUNT(AUTO) 4.26 MIL/uL (4.5-6.0); RED CELL DISTRIBUTION WIDTH 14.8 % (11.5-15.0); WHITE BLOOD COUNT (AUTO) 8.5 K/uL (4.3-11.0)
[2025-08-03 04:57] LABS: ASPARTATE AMINOTRANSFERASE 12.0 U/L (15-37); CALCIUM, SERUM 8.1 mg/dL (8.5-10.1); CREATININE 0.8 mg/dL (0.6-1.3); PHOSPHORUS 2.8 mg/dL (2.5-4.9); TOTAL PROTEIN, SERUM 6.3 g/dL (6.4-8.2); UREA NITROGEN, BLOOD 2.0 mg/dL (7-18)
[2025-08-03 05:06] LABS: SODIUM SERUM 142.0 mmol/L (136-145)
[2025-08-03] MEDS: Magnesium 1GM/D5W 100ML PREMIX 100 ML IV SCH ×2 (06:40→08:34)
[2025-08-03] MEDS: POTASSIUM CHLORIDE 20 MEQ POWDER PACKET PO ONE (06:40)
[2025-08-03] MEDS: POTASSIUM CL. PREMIX PERIPHER. 50 ML IV SCH (06:41)
[2025-08-03] MEDS: MAGNESIUM OXIDE 400 MG TABLET PO SCH (07:48)
[2025-08-03] MEDS: Potassium Chloride 20 MEQ in IV D5/0.45 NACL 1,000 ML IV SCH (07:49)
[2025-08-03] MEDS: ENSURE CLEAR 237 ML LIQUID (MIX BERRY) PO SCH (16:41)
[2025-08-04] VITALS: BP 122/75; TEMP 97.9; O2SAT 98
[2025-08-04 04:00] VITALS: BP 110/58; TEMP 98.8; O2SAT 95
[2025-08-04 08:00] VITALS: BP 133/73; TEMP 97.5; O2SAT 98
[2025-08-04 12:00] VITALS: BP 121/81; TEMP 97.3; O2SAT 98
[2025-08-04 16:00] VITALS: BP 136/80; TEMP 97.2; O2SAT 100
[2025-08-04 20:00] VITALS: BP 110/61; TEMP 97.9; O2SAT 100
[2025-08-05] VITALS (10 sets, daily range): BP systolic 95–147; BP diastolic 55–72; TEMP 96.9–97.9; O2SAT 97–100
[2025-08-05 17:13] LABS: PLATELET COUNT (AUTO) 184 K/uL (150-450); RED BLOOD CELL COUNT(AUTO) 3.36 MIL/uL (4.5-6.0); RED CELL DISTRIBUTION WIDTH 15.1 % (11.5-15.0); WHITE BLOOD COUNT (AUTO) 10.4 K/uL (4.3-11.0)
[2025-08-05 17:20] LABS: CALCIUM, SERUM 7.8 mg/dL (8.5-10.1); CREATININE 0.9 mg/dL (0.6-1.3); SODIUM SERUM 143.0 mmol/L (136-145); UREA NITROGEN, BLOOD 2.0 mg/dL (7-18)
[2025-08-05 17:33] LABS: INR 1.31 (0.91-1.10)
[2025-08-05] MEDS: Magnesium 1GM/D5W 100ML PREMIX 100 ML IV SCH (23:18)
[2025-08-06] VITALS: BP 108/58; TEMP 94.5; O2SAT 98
[2025-08-06 04:00] VITALS: BP 119/63; TEMP 97.3; O2SAT 99
[2025-08-06 07:06] LABS: INR 1.2 (0.91-1.10)
[2025-08-06 07:24] LABS: CALCIUM, SERUM 8.0 mg/dL (8.5-10.1); CREATININE 0.9 mg/dL (0.6-1.3); SODIUM SERUM 145.0 mmol/L (136-145); UREA NITROGEN, BLOOD 2.0 mg/dL (7-18)
[2025-08-06 08:00] VITALS: BP 119/49; TEMP 97.5; O2SAT 97
[2025-08-06] MEDS: Magnesium 1GM/D5W 100ML PREMIX 100 ML IV SCH (08:13)
[2025-08-06] MEDS: POTASSIUM CHLORIDE 20 MEQ TAB.PRT.SR PO SCH (08:58)
[2025-08-06 09:19] LABS: PLATELET COUNT (AUTO) 180 K/uL (150-450); RED BLOOD CELL COUNT(AUTO) 3.48 MIL/uL (4.5-6.0); RED CELL DISTRIBUTION WIDTH 15.1 % (11.5-15.0); WHITE BLOOD COUNT (AUTO) 7.9 K/uL (4.3-11.0)
[2025-08-06 12:00] VITALS: BP 122/57; TEMP 96.5; O2SAT 96
[2025-08-06] MEDS: GLUCERNA SHAKE 237 ML CAN PO SCH (12:03)
[2025-08-06] MEDS: PROSOURCE / PROSTAT (PYXIS) 30 ML UDC PO SCH (12:06)
[2025-08-06 16:00] VITALS: BP 153/63; TEMP 96.8; O2SAT 96
[2025-08-06 20:00] VITALS: BP 119/63; TEMP 97.2; O2SAT 98
[2025-08-07] VITALS: BP 96/50; TEMP 97.5; O2SAT 98
[2025-08-07 04:00] VITALS: BP 116/58; TEMP 97.5; O2SAT 99
[2025-08-07 06:34] LABS: PLATELET COUNT (AUTO) 183 K/uL (150-450); RED BLOOD CELL COUNT(AUTO) 3.47 MIL/uL (4.5-6.0); RED CELL DISTRIBUTION WIDTH 14.8 % (11.5-15.0); WHITE BLOOD COUNT (AUTO) 15.8 K/uL (4.3-11.0)
[2025-08-07 06:52] LABS: CALCIUM, SERUM 8.2 mg/dL (8.5-10.1); CREATININE 0.8 mg/dL (0.6-1.3); SODIUM SERUM 144.0 mmol/L (136-145); UREA NITROGEN, BLOOD 3.0 mg/dL (7-18)
[2025-08-07 08:00] VITALS: BP 139/62; TEMP 97.5; O2SAT 99
[2025-08-07] MEDS: POTASSIUM CHLORIDE 20 MEQ TAB.PRT.SR PO SCH (09:02)
[2025-08-07 16:00] VITALS: BP 148/65; TEMP 97.5; O2SAT 100
[2025-08-08] VITALS: BP 118/51; TEMP 97.4; O2SAT 98
[2025-08-08 08:00] VITALS: BP 149/68; TEMP 97.5; O2SAT 100
[2025-08-08 16:08] LABS: APPEARANCE,URINE CLEAR (CLEAR); BLOOD, URINE 2+ Ery/uL (NEGATIVE); LEUKOCYTE ESTERASE ,URINE NEGATIVE (NEGATIVE); NITRITE, URINE POSITIVE (NEGATIVE); UGLUCOSE NEGATIVE (NEGATIVE)
[2025-08-08 16:23] LABS: ADD URINE CULTURE YES; SQUAMOUS EPITHELIAL CELL,UR 0-2 /HPF (None Seen)
== END 2025-08-08 17:04 | DRG 344 ==
LOC: ER 15:11 → MED 18:59 → ICU 07-29 12:30 → TELE1 08-03 12:48 → MEDSG1 08-07 08:46
PROVIDERS: ADMIT Nurse Practitioner Acute Care; ATTEND Nurse Practitioner Family
PROC: 0D9N8ZZ Drainage of Sigmoid Colon, Via Natural or Artificial Opening Endoscopic (ICD-10-PCS; principal; 2025-07-30 19:00)
DX: K56.2 Volvulus (principal); E43 Unspecified severe protein-calorie malnutrition; G92.8 Other toxic encephalopathy; L89.313 Pressure ulcer of right buttock, stage 3; E87.20 Acidosis, unspecified; L89.326 Pressure-induced deep tissue damage of left buttock; R13.10 Dysphagia, unspecified; E86.0 Dehydration; C18.7 Malignant neoplasm of sigmoid colon; I50.32 Chronic diastolic (congestive) heart failure; D63.8 Anemia in other chronic diseases classified elsewhere; F29 Unspecified psychosis not due to a substance or known physiological condition; E11.9 Type 2 diabetes mellitus without complications; I11.0 Hypertensive heart disease with heart failure; F03.90 Unspecified dementia, unspecified severity, without behavioral disturbance, psychotic disturbance, mood disturbance, and anxiety; J44.9 Chronic obstructive pulmonary disease, unspecified; K86.1 Other chronic pancreatitis; K56.690 Other partial intestinal obstruction; E88.09 Other disorders of plasma-protein metabolism, not elsewhere classified; E87.6 Hypokalemia; K21.9 Gastro-esophageal reflux disease without esophagitis; E78.5 Hyperlipidemia, unspecified; E83.42 Hypomagnesemia; Z79.84 Long term (current) use of oral hypoglycemic drugs; R62.7 Adult failure to thrive; R63.4 Abnormal weight loss; Z68.26 Body mass index [BMI] 26.0-26.9, adult; F20.9 Schizophrenia, unspecified; L89.156 Pressure-induced deep tissue damage of sacral region; L89.316 Pressure-induced deep tissue damage of right buttock; L98.8 Other specified disorders of the skin and subcutaneous tissue; N40.0 Benign prostatic hyperplasia without lower urinary tract symptoms; Z53.20 Procedure and treatment not carried out because of patient's decision for unspecified reasons; Z91.199 Patient's noncompliance with other medical treatment and regimen due to unspecified reason
CPT/HCPCS: 36415; 36600; 71045-TC; 71260-TC; 80048-TC; 80053-TC; 80076-TC; 81001; 82378; 82607-TC; 82728-TC; 82784; 82803-TC; 82962-TC; 83540-TC; 83615-TC; 83735-TC; 84100-TC; 84133-TC; 84153-TC; 84154-TC; 84155; 84165; 84300-TC; 84443-TC; 85025-TC; 85396; 85610-TC; 85730-TC; 86334; 86850-TC; 87040-TC; 87081-TC; 87086-TC; 93307-TC; A4217; A4223; A6213; G0378; J1630; J1815; J2060; J2250; J2543; J2704; J3475; J3480; J3490; J7030; J7040; J7050; J7060; Q9963; Q9967